=== PATIENT | female | born 1975 | race Caucasian/White ===

== ENCOUNTER 2021-04-08 09:52 | Emergency (ER) | payer MEDICAID ==
[~2021-04-08] VITALS: Ht 160 cm; Wt 80.0 kg
[2021-04-08] MEDS ORDERED: ONDANSETRON HCL 4MG/2ML INJ IV STA (10:44)
[2021-04-08] MEDS ORDERED: KETOROLAC 60MG/2ML VIAL IM ONE (10:45)
[2021-04-08] MEDS ORDERED: SODIUM CHLORIDE 0.9% 1,000 ML IV ONE (10:45)
[2021-04-08] MEDS ORDERED: HYDROMORPHONE HCL/PF 2MG/ML CPJ IV ONE (10:45)
[2021-04-08 11:08] LABS: BASOPHILS % 0.7 % (0.0-2.0); EOSINOPHILS % 1.1 % (0.0-5.0); HEMATOCRIT. 39.1 % (36.0-48.0); HEMOGLOBIN. 13.2 g/dL (12.0-16.0); LYMPHOCYTES % 10.6 % (20.0-50.0); MEAN CORPUSCULAR HEMOGLOBIN 31.6 pg (28.0-32.0); MEAN CORPUSCULAR VOLUME 93.7 fL (81.0-99.0); MEAN PLATELET VOLUME 8.5 fl (7.4-10.4); MONOCYTES % 7.5 % (2.0-8.0); NEUTROPHILS % 80.1 % (40.0-76.0); PLATELET 226 x1000/uL (130-400); RED BLOOD CELL COUNT 4.18 mill/uL (4.2-5.4); RED CELL DISTRIBUTION WIDTH 18.3 % (11.6-14.6)
[2021-04-08 11:16] LABS: CHLORIDE 98 mEq/L (98-107)
[2021-04-08] MEDS ORDERED: LEVO750T46 MT (16:43)
[2021-04-08] MEDS ORDERED: KETOROLAC 30MG/ML VIAL IM NR (17:15)
[2021-04-08] MEDS ORDERED: ONDANSETRON HCL 4MG/2ML INJ IV NR (17:15)
[2021-04-08] MEDS ORDERED: GABA-532 MT (18:17)
[2021-04-08] MEDS ORDERED: CELE100C97 MT (18:17)
[2021-04-08 18:20] VITALS: BP 118/81
== END 2021-04-08 19:08 | disposition home or self-care (01) ==
LOC: ER 09:59
DX: R42 Dizziness and giddiness (principal); R51.9 Headache, unspecified; M79.605 Pain in left leg; E11.9 Type 2 diabetes mellitus without complications; I10 Essential (primary) hypertension
CPT/HCPCS: 36415; 70450; 71045; 73552; 80053; 85025; 96361; 96374; 99285; J1170; J7030